=== PATIENT | male | born 1980 | race Caucasian/White ===

== ENCOUNTER 2016-12-06 11:30 | Emergency (ER) | payer MEDICAID ==
[~2016-12-06] VITALS: Ht 177.8 cm; Wt 96.5 kg
[2016-12-06 11:32] VITALS: Ht 177.8 cm; Wt 96.5 kg
[2016-12-06] MEDS ORDERED: ALBUTEROL 0.5% (NEB) 2.5 MG/0.5 ML AMP NEB STA (11:40)
[2016-12-06] MEDS ORDERED: ALBUTEROL 0.5% (NEB) 2.5 MG/0.5 ML AMP INH STA (12:49)
--- NOTE | 2016-12-06 12:49 | ERD ---
ER Documentation Chief Complaint Date/Time DATE: 12/06/16 TIME: 12:44 Chief Complaint ASTHMA EXACERBATION , INHALER NOT WORKING HPI This is a 36-year-old male presenting to the emergency department for asthma exacerbation. Patient states he feels short of breath with chest wall pain. Patient states he is having difficulty breathing. Patient used his albuterol inhaler about 30 minutes prior to arrival and still having difficulty breathing with wheezing. No cough. No sore throat, difficulty swallowing or drooling. Patient states this has been an ongoing problem over the last month. Patient currently smokes tobacco and marijuana. He has recently started smoking more. ROS All systems reviewed and are negative except as per history of present illness. Medications Home Meds Active Scripts Prednisone* (Prednisone*) 20 Mg Tab, 40 MG PO DAILY for 4 Days, TAB Prov:BERKLEY LANDIS NP 12/06/16 Albuterol Sulfate* (Proair HFA*) 8.5 Gm Hfa.aer.ad, 2 PUFF INH Q4, #1 INHALER Prov:BERKLEY LANDIS NP 12/06/16 PMhx/Soc History of Surgery: No Anesthesia Reaction: No Hx Neurological Disorder: No Hx Respiratory Disorders: Yes (ASTHMA) Hx Cardiac Disorders: No Hx Psychiatric Problems: No Hx Miscellaneous Medical Probl: No Hx Alcohol Use: No Hx Substance Use: No Hx Tobacco Use: No Physical Exam Vitals Vital Signs Date Time Temp Pulse Resp B/P Pulse Ox O2 Delivery O2 Flow Rate FiO2 12/06/16 14:41 99.2 99 24 138/80 97 Room Air 12/06/16 12:59 83 22 93 21 12/06/16 11:45 103 28 92 21 12/06/16 11:32 99.0 90 20 126/73 95 Physical Exam Const: Alert, anxious Head: Atraumatic Eyes: Normal Conjunctiva ENT: Normal External Ears, Nose and Mouth. Neck: Full range of motion..~ No meningismus. Resp: Wheezing to auscultation bilaterally. No stridor Cardio: Regular rate and rhythm, no murmurs Abd: Soft, non tender, non distended. Normal bowel sounds Skin: No petechiae or rashes Back: No midline or flank tenderness Ext: No cyanosis, or edema Neur: Awake and alert Psych: Normal Mood and Affect Results 24 hrs Current Medications Medications (Trade) Dose Ordered Sig/Darin Route PRN Reason Start Time Stop Time Status Last Admin Dose Admin Albuterol (Proventil 0.5% (Neb)) 10 mg ONCE STAT NEB 12/06/16 11:40 12/06/16 11:42 DC 12/06/16 11:49 Albuterol (Proventil 0.5% (Neb)) 10 mg ONCE STAT INH 12/06/16 12:49 12/06/16 12:50 DC 12/06/16 12:54 Dexamethasone (Decadron) 10 mg ONCE ONCE IM 12/06/16 14:00 12/06/16 14:01 DC 12/06/16 14:19 Albuterol (Ventolin Hfa) 2 puff ONCE ONCE INH 12/06/16 14:30 12/06/16 14:31 DC 12/06/16 14:25 Procedures/MDM [place] [id number] Radiology Main Line: [phone] DIAGNOSTIC IMAGING REPORT Patient: ALEM ELLISON : 1980 Age: 36 Sex: M MR #: [id number] DOS: 12/06/16 1140 Ordering MD: BERKLEY LANDIS NP Location: [facility] Room/Bed: PROCEDURE: Chest x-ray CLINICAL INDICATION: Asthma exacerbation. TECHNIQUE: One-view frontal. COMPARISON: None available FINDINGS: The cardiac silhouette is normal. No infiltrates are noted. No hilar abnormalities are identified. No pneumothorax or pleural effusions are visualized. IMPRESSION: 1. No active cardiopulmonary changes. MDM: This is a 36-year-old male presenting to the emergency department for asthma exacerbation. Patient states he has difficulty breathing with wheezing. Patient states he has been using his albuterol inhaler without relief of symptoms. Last use of inhaler was 30 minutes prior to arrival. Physical exam reveals wheezing heard posteriorly bilaterally to upper and lower lobe of the lungs. Oxygen saturation 95% on room air with 20 respirations per minute. Patient given albuterol nebulizer treatment. Upon reassessment, patient continues to have coarse wheezing posteriorly bilaterally. A continuous albuterol nebulizer treatment was ordered. Chest x-ray reviewed by radiologist as no active cardiopulmonary changes. A reassessment was done after continuous albuterol nebulizer treatment and patient states he is feeling much better. No longer short of breath and no longer having difficulty breathing. Wheezing has reduced. Patient was also given Decadron 10 mg IM. Vital signs remained stable. Oxygen saturation 100% on room air. No stridor or labored breathing. No intercostal retractions. Low suspicion for pneumonia, pleural effusion, pneumothorax or acute DC. Differential diagnosis includes but not limited to URI, influenza, otitis media , otitis externa, asthma exacerbation, croup, bronchitis, bronchiolitis and costochondritis. Patient is appropriate for outpatient management and will be given prescription for pro-air inhaler and prednisone. Instructed patient to follow-up with primary care provider in the next 2-3 days for reassessment and additional management. Return to ED for any high fever, chest pain, difficulty breathing, shortness breath, wheezing, vomiting, diarrhea, abdominal pain or any new or worsening symptoms. Patient verbalizes understanding. All questions answered at discharge. Departure Diagnosis: Primary Impression: Asthma with acute exacerbation Asthma severity: unspecified severity Qualified Code: J45.901 - Asthma with acute exacerbation, unspecified asthma severity Condition: Stable BERKLEY LANDIS NP Dec 06, 2016 12:49
--- NOTE | 2016-12-06 13:54 | RADRPT ---
PROCEDURE: Chest x-ray CLINICAL INDICATION: Asthma exacerbation. TECHNIQUE: One-view frontal. COMPARISON: None available FINDINGS: The cardiac silhouette is normal. No infiltrates are noted. No hilar abnormalities are identified. No pneumothorax or pleural effusions are visualized. IMPRESSION: 1. No active cardiopulmonary changes. RPTAT: HGSG .Matt Rico MD, MD Date Time Electronically viewed and signed by .Matt Rico MD, MD on 12/06/2016 13:54 .G/
[2016-12-06] MEDS ORDERED: DEXAMETHASONE 10 MG/ML 1 ML INJ IM ONE (14:00)
[2016-12-06] MEDS ORDERED: ALBUTEROL 18 GM INHALER INH ONE (14:30)
[2016-12-06] MEDS ORDERED: PRED20TA PO (14:36)
[2016-12-06] MEDS ORDERED: ALBU8.5H3 INH (14:36)
[2016-12-06 14:41] VITALS: BP 138/80; PULSE 99; RESP 24; TEMP 99.2
== END 2016-12-06 14:43 | disposition home or self-care (01) ==
LOC: FTE 11:30
DX: J45.901 Unspecified asthma with (acute) exacerbation (principal)
CPT/HCPCS: 71010; 94644; 94645; J1100; Z7610; 96372